=== PATIENT | male | born 1950 ===

== ENCOUNTER 2019-07-17 16:49 | Inpatient (IN) | payer MEDICARE, OTHER ==
[~2019-07-17] VITALS: Ht 172.7 cm; Wt 57.8 kg
[2019-07-17] MEDS ORDERED: CHOL50004 PO (17:01)
[2019-07-17] MEDS ORDERED: ATOR20TA86 PO (17:01)
[2019-07-17] MEDS ORDERED: OLAN10TA3 PO (17:01)
[2019-07-17] MEDS ORDERED: PARO20TA24 PO (17:01)
[2019-07-17] MEDS ORDERED: MIRT15 PO (17:01)
[2019-07-17] MEDS ORDERED: LEVO75 PO (17:01)
[2019-07-17] MEDS ORDERED: CALC-1038 PO (17:01)
[2019-07-17] MEDS ORDERED: ASCO500 PO (17:01)
[2019-07-17] MEDS ORDERED: DOCU-275 PO (17:01)
[2019-07-17] MEDS ORDERED: FERR134T2 PO (17:01)
[2019-07-17 17:17] LABS: BASOPHILS % (AUTO) 0.2 % (0.0-2.0); EOSINOPHILS % (AUTO) 0 % (1.0-6.0); HEMATOCRIT 21.4 % (41-53); HEMOGLOBIN 7.2 g/dL (13.5-17.5); LYMPHOCYTES # (AUTO) 2.1 K/uL (1.0-4.8); LYMPHOCYTES % (AUTO) 14.6 % (22.0-44.0); MEAN CORPUSCULAR HEMOGLOBIN 30.2 pg (26.0-34.0); MEAN CORPUSCULAR HGB CONC 33.6 G/dL (31.0-37.0); MEAN CORPUSCULAR VOLUME 90 fL (80-100); MONOCYTES # (AUTO) 0.9 K/uL (0.1-1.0); MONOCYTES % (AUTO) 6.7 % (2.0-9.0); NEUTROPHILS # (AUTO) 11.2 K/uL (1.8-7.7); NEUTROPHILS % (AUTO) 78.5 % (40.0-70.0); PLATELET COUNT (AUTO) 354 K/uL (150-450); RED BLOOD CELL COUNT(AUTO) 2.38 MIL/uL (4.50-5.90); RED CELL DISTRIBUTION WIDTH 13.7 % (11.5-14.5)
[2019-07-17 17:40] LABS: CALCIUM, TOTAL 9.2 mg/dL (8.8-10.5); CREATININE 1.8 mg/dL (0.60-1.30)
[2019-07-17] MEDS ORDERED: BARIUM SULFATE 0.1% SUSPENSION 450 ML BOTTLE PO ONE (17:45)
[2019-07-17] MEDS ORDERED: SODIUM CHLORIDE 0.9% 0 ML ONE (17:45)
[2019-07-17] MEDS ORDERED: IOVERSOL 320 MG/ML 100 ML VIAL ONE (17:45)
[2019-07-17 17:46] LABS: BILIRUBIN,TOTAL 0.2 mg/dL (0.1-1.0); TOTAL PROTEIN, SERUM 6.4 g/dL (6.4-8.2)
[2019-07-17] MEDS ORDERED: CALC-916 PO (17:46)
[2019-07-17] MEDS ORDERED: FERR-89 PO (17:46)
[2019-07-17 18:02] LABS: INR 1.1 (0.9-1.1); PROTHROMBIN TIME 10.8 SEC (9.4-11.6)
[2019-07-17 18:07] LABS: FREE T4 (FREE THYROXINE) 1.12 ng/dL (0.76-1.46); THYROID STIMULATING HORMONE 10.85 uIU/mL (0.36-3.74)
[2019-07-17] MEDS ORDERED: SODIUM CHLORIDE 0.9% 1,000 ML IV ONE (18:30)
[2019-07-17] MEDS ORDERED: CIPROFLOXACIN 400 MG/D5% WATER 200 ML IV ONE (19:15)
[2019-07-17] MEDS ORDERED: MetroNIDAZOLE 250 MG TABLET PO ONE (19:15)
[2019-07-17] MEDS ORDERED: SODIUM CHLORIDE 0.9% 1,500 ML IV ONE (19:53)
[2019-07-17] MEDS ORDERED: ONDANSETRON HCL 4 MG/2 ML VIAL IVP PRN (20:15)
[2019-07-17] MEDS ORDERED: 0.9% SODIUM CHLORIDE 10 ML SYRINGE IVP PRN (20:15)
[2019-07-17] MEDS ORDERED: ACETAMINOPHEN 325 MG TABLET PO PRN (20:15)
[2019-07-17] MEDS: LORazepam 2 MG/ML VIAL IVP PRN (23:59)
[2019-07-18] MEDS ORDERED: MIRTAZAPINE 15 MG TABLET PO SCH
[2019-07-18] MEDS ORDERED: ZOLPIDEM TARTRATE 5 MG TABLET PO PRN
[2019-07-18] MEDS ORDERED: ONDANSETRON HCL 4 MG/2 ML VIAL IVP PRN
[2019-07-18] MEDS ORDERED: SODIUM PHOS/SODIUM BIPHOS 133 ML ENEMA PR ONE
[2019-07-18] MEDS ORDERED: SODIUM CHLORIDE 0.9% 1,000 ML IV ONE
[2019-07-18] MEDS ORDERED: 0.9% SODIUM CHLORIDE 10 ML SYRINGE IVP PRN
[2019-07-18] MEDS: OLANZapine 10 MG TABLET PO SCH ×2 (01:46→21:17)
[2019-07-18 02:19] LABS: BASOPHILS % (AUTO) 0.1 % (0.0-2.0); EOSINOPHILS % (AUTO) 0 % (1.0-6.0); LYMPHOCYTES # (AUTO) 1.4 K/uL (1.0-4.8); LYMPHOCYTES % (AUTO) 12.1 % (22.0-44.0); MEAN CORPUSCULAR HEMOGLOBIN 30.5 pg (26.0-34.0); MEAN CORPUSCULAR HGB CONC 33.5 G/dL (31.0-37.0); MEAN CORPUSCULAR VOLUME 91 fL (80-100); MONOCYTES # (AUTO) 0.6 K/uL (0.1-1.0); MONOCYTES % (AUTO) 5.3 % (2.0-9.0); NEUTROPHILS # (AUTO) 9.7 K/uL (1.8-7.7); NEUTROPHILS % (AUTO) 82.5 % (40.0-70.0); PLATELET COUNT (AUTO) 297 K/uL (150-450); RED BLOOD CELL COUNT(AUTO) 1.84 MIL/uL (4.50-5.90); RED CELL DISTRIBUTION WIDTH 13.7 % (11.5-14.5)
[2019-07-18 02:23] LABS: HEMATOCRIT 16.7 % (41-53)
[2019-07-18 02:25] LABS: HEMOGLOBIN 5.6 g/dL (13.5-17.5)
[2019-07-18 02:27] LABS: CALCIUM, TOTAL 7.6 mg/dL (8.8-10.5); CREATININE 1.59 mg/dL (0.60-1.30); POTASSIUM 4.2 mmol/L (3.5-5.1)
[2019-07-18 02:37] LABS: TROPONIN I 0.02 ng/mL (0.00-0.05)
[2019-07-18 02:52] LABS: ABG A-A DIFF O2 49.9 mmHg (10-20.0); ABG BASE EXCESS -8.4 mmol/L (-2.0-3.0); ABG CARBOXYHEMOGLOBIN 1.5 % (0.0-1.5); ABG METHEMOGLOBIN 0.3 % (0.0-1.5); ABG OXYGEN CONTENT 7.9 mL/dL (15.0-23.0); ABG OXYGEN SATURATION 99.1 % (95.0-98.0); ABG OXYHEMOGLOBIN 97.3 % (94.0-100.0); ABG PCO2 21 mmHg (35-45); ABG PH 7.473 (7.35-7.450); PO2, ARTERIAL BG 153.3 mmHg (75.0-83.0); SOURCE, BLOOD GAS ARTERIAL; TEMPERATURE, FAHRENHEIT, BG 98.6 FAHREN (96.0-98.6)
[2019-07-18 02:53] LABS: ABG TOTAL HEMOGLOBIN 5.5 G/dL (12.0-18.0); SITE, BLOOD GAS RT RADIAL
[2019-07-18 02:54] LABS: O2 DEVICE,BLOOD GAS CANNULA (ROOM AIR)
[2019-07-18 03:15] VITALS: BP 110/39
[2019-07-18 03:30] VITALS: BP 109/73
[2019-07-18 04:00] VITALS: BP 117/59
[2019-07-18] MEDS: MetroNIDAZOLE 250 MG/NACL 50 ML IV SCH ×3 (04:25→19:37)
[2019-07-18 04:30] VITALS: BP 125/67
[2019-07-18] MEDS ORDERED: PANTOPRAZOLE SODIUM 40 MG/VIAL IVP ONE (04:30)
[2019-07-18 05:00] VITALS: BP 130/84
[2019-07-18] MEDS: PANTOPRAZOLE SODIUM 80 MG in SODIUM CHLORIDE 0.9% 100 ML IV SCH ×2 (05:18→14:47)
[2019-07-18 05:29] LABS: APPEARANCE,URINE CLEAR (CLEAR); BILIRUBIN,URINE NEGATIVE (NEGATIVE); GLUCOSE, URINE (UA) NEGATIVE (NEGATIVE); KETONES,URINE NEGATIVE (NEGATIVE); LEUKOCYTE ESTERASE ,URINE NEGATIVE (NEGATIVE); NITRATE,URINE NEGATIVE (NEGATIVE); OCCULT BLOOD,URINE NEGATIVE (NEGATIVE); PH,URINE 5.5 (5.0-8.0); PROTEIN,URINE NEGATIVE (NEGATIVE); UROBILINOGEN,URINE 0.2 mg/dL (<=1.0)
[2019-07-18 05:30] VITALS: BP 132/59
[2019-07-18] MEDS: LEVOTHYROXINE SODIUM 75 MCG TABLET PO SCH (07:14)
[2019-07-18] MEDS: FERROUS SULFATE 325 MG EC TABLET PO SCH ×2 (08:00→17:10)
[2019-07-18] MEDS: HEPARIN SODIUM,PORCINE 5,000 UNITS/ML VIAL SQ SCH ×3 (08:00→08:14)
[2019-07-18 08:07] LABS: BASOPHILS % (AUTO) 0.1 % (0.0-2.0); EOSINOPHILS % (AUTO) 0.1 % (1.0-6.0); HEMATOCRIT 23.8 % (41-53); HEMOGLOBIN 8.3 g/dL (13.5-17.5); LYMPHOCYTES # (AUTO) 0.6 K/uL (1.0-4.8); LYMPHOCYTES % (AUTO) 5.4 % (22.0-44.0); MEAN CORPUSCULAR HEMOGLOBIN 31.3 pg (26.0-34.0); MEAN CORPUSCULAR VOLUME 90 fL (80-100); MONOCYTES # (AUTO) 0.3 K/uL (0.1-1.0); MONOCYTES % (AUTO) 2.4 % (2.0-9.0); NEUTROPHILS # (AUTO) 9.6 K/uL (1.8-7.7); PLATELET COUNT (AUTO) 244 K/uL (150-450); RED BLOOD CELL COUNT(AUTO) 2.66 MIL/uL (4.50-5.90); RED CELL DISTRIBUTION WIDTH 13.8 % (11.5-14.5)
[2019-07-18 08:27] LABS: ALBUMIN 2.5 g/dL (3.4-5.0); BILIRUBIN,TOTAL 1.2 mg/dL (0.1-1.0); CREATININE 1.28 mg/dL (0.60-1.30); MAGNESIUM 1.6 mg/dL (1.80-2.40); POTASSIUM 3.8 mmol/L (3.5-5.1); TOTAL PROTEIN, SERUM 5.2 g/dL (6.4-8.2)
[2019-07-18] MEDS ORDERED: PANTOPRAZOLE SODIUM 40 MG DR TABLET PO SCH (09:00)
[2019-07-18] MEDS ORDERED: ASCORBIC ACID 500 MG TABLET PO SCH (09:00)
[2019-07-18] MEDS: CHOLECALCIFEROL (VIT D3) 5,000 UNITS CAPSULE PO SCH (09:00)
[2019-07-18] MEDS: ATORVASTATIN CALCIUM 20 MG TABLET PO SCH (09:00)
[2019-07-18] MEDS: DOCUSATE SODIUM 100 MG CAPSULE PO SCH ×3 (09:00→20:26)
[2019-07-18] MEDS: CIPROFLOXACIN 400 MG/D5% WATER 200 ML IV SCH ×2 (09:16→20:48)
[2019-07-18] MEDS ORDERED: SODIUM CHLORIDE 0.9% 500 ML IV ONE (11:30)
[2019-07-18] MEDS: LORazepam 2 MG/ML VIAL IVP PRN ×2 (11:44→18:08)
[2019-07-18] MEDS ORDERED: ONDANSETRON HCL 4 MG TABLET ONE (17:22)
[2019-07-18 20:58] LABS: HEMATOCRIT 21.1 % (41-53); HEMOGLOBIN 7.2 g/dL (13.5-17.5); MEAN CORPUSCULAR HGB CONC 34.4 G/dL (31.0-37.0); MEAN CORPUSCULAR VOLUME 90 fL (80-100); PLATELET COUNT (AUTO) 265 K/uL (150-450); RED BLOOD CELL COUNT(AUTO) 2.34 MIL/uL (4.50-5.90); RED CELL DISTRIBUTION WIDTH 14.2 % (11.5-14.5)
[2019-07-18 22:11] LABS: BAND NEUTROPHILS % (MANUAL) 25 % (0-5); LYMPHOCYTES % (MANUAL) 7 % (22-44); MONOCYTES % (MANUAL) 6 % (2-9); SEGMENTED NEUTROPHILS % 62 % (40-70)
[2019-07-19] MEDS: LORazepam 2 MG/ML VIAL IVP PRN ×4 (00:16→22:23)
[2019-07-19] MEDS: PANTOPRAZOLE SODIUM 80 MG in SODIUM CHLORIDE 0.9% 100 ML IV SCH ×3 (00:33→21:09)
[2019-07-19] MEDS: MetroNIDAZOLE 250 MG/NACL 50 ML IV SCH ×3 (03:16→20:38)
[2019-07-19] MEDS: FERROUS SULFATE 325 MG EC TABLET PO SCH ×2 (08:18→17:54)
[2019-07-19] MEDS: LEVOTHYROXINE SODIUM 75 MCG TABLET PO SCH (08:18)
[2019-07-19 08:38] LABS: EOSINOPHILS % (AUTO) 0 % (1.0-6.0); HEMATOCRIT 22.2 % (41-53); HEMOGLOBIN 7.6 g/dL (13.5-17.5); LYMPHOCYTES # (AUTO) 0.7 K/uL (1.0-4.8); LYMPHOCYTES % (AUTO) 6.5 % (22.0-44.0); MEAN CORPUSCULAR HEMOGLOBIN 30.6 pg (26.0-34.0); MEAN CORPUSCULAR HGB CONC 34.3 G/dL (31.0-37.0); MEAN CORPUSCULAR VOLUME 89 fL (80-100); MONOCYTES # (AUTO) 0.6 K/uL (0.1-1.0); MONOCYTES % (AUTO) 5.2 % (2.0-9.0); NEUTROPHILS # (AUTO) 9.6 K/uL (1.8-7.7); PLATELET COUNT (AUTO) 279 K/uL (150-450); RED BLOOD CELL COUNT(AUTO) 2.49 MIL/uL (4.50-5.90); RED CELL DISTRIBUTION WIDTH 14.2 % (11.5-14.5)
[2019-07-19 08:40] LABS: NEUTROPHILS % (AUTO) 88.3 % (40.0-70.0)
[2019-07-19 08:47] LABS: CALCIUM, TOTAL 7.5 mg/dL (8.8-10.5); CREATININE 1.21 mg/dL (0.60-1.30); POTASSIUM 3.9 mmol/L (3.5-5.1)
[2019-07-19 08:52] LABS: INR 1.2 (0.9-1.1)
[2019-07-19 08:57] LABS: ALBUMIN 2.3 g/dL (3.4-5.0); BILIRUBIN,TOTAL 0.5 mg/dL (0.1-1.0); TOTAL PROTEIN, SERUM 5.3 g/dL (6.4-8.2)
[2019-07-19] MEDS: CHOLECALCIFEROL (VIT D3) 5,000 UNITS CAPSULE PO SCH (09:09)
[2019-07-19] MEDS: ATORVASTATIN CALCIUM 20 MG TABLET PO SCH (09:09)
[2019-07-19] MEDS: DOCUSATE SODIUM 100 MG CAPSULE PO SCH ×2 (09:09→21:00)
[2019-07-19] MEDS: CIPROFLOXACIN 400 MG/D5% WATER 200 ML IV SCH ×2 (09:18→21:59)
[2019-07-19] MEDS ORDERED: PROPOFOL 1% 20 ML VIAL IVP ONE (12:00)
[2019-07-19] MEDS ORDERED: MIDAZOLAM HCL 2 MG/2 ML VIAL ONE (14:09)
[2019-07-19] MEDS ORDERED: FentaNYL CITRATE-PF 100 MCG/2 ML VIAL ONE (14:09)
[2019-07-19 19:00] VITALS: BP 117/62
[2019-07-19 19:30] VITALS: BP 134/52
[2019-07-19] MEDS: OLANZapine 10 MG TABLET PO SCH (21:00)
[2019-07-19 22:18] VITALS: BP 115/61
[2019-07-19] MEDS ORDERED: LORazepam 2 MG/ML VIAL ONE (22:22)
[2019-07-20] MEDS: MetroNIDAZOLE 250 MG/NACL 50 ML IV SCH ×3 (03:58→20:40)
[2019-07-20 04:00] VITALS: BP 100/60
[2019-07-20] MEDS: LEVOTHYROXINE SODIUM 75 MCG TABLET PO SCH (06:30)
[2019-07-20] MEDS: PANTOPRAZOLE SODIUM 80 MG in SODIUM CHLORIDE 0.9% 100 ML IV SCH ×2 (07:02→17:36)
[2019-07-20] MEDS: LORazepam 2 MG/ML VIAL IVP PRN (07:47)
[2019-07-20 07:48] VITALS: BP 118/56
[2019-07-20 09:41] LABS: BASOPHILS % (AUTO) 0.1 % (0.0-2.0); EOSINOPHILS % (AUTO) 0 % (1.0-6.0); HEMATOCRIT 21.6 % (41-53); HEMOGLOBIN 7.6 g/dL (13.5-17.5); LYMPHOCYTES # (AUTO) 0.7 K/uL (1.0-4.8); LYMPHOCYTES % (AUTO) 7.1 % (22.0-44.0); MEAN CORPUSCULAR HEMOGLOBIN 31.9 pg (26.0-34.0); MEAN CORPUSCULAR HGB CONC 35.4 G/dL (31.0-37.0); MEAN CORPUSCULAR VOLUME 90 fL (80-100); MONOCYTES # (AUTO) 0.7 K/uL (0.1-1.0); MONOCYTES % (AUTO) 6.4 % (2.0-9.0); PLATELET COUNT (AUTO) 351 K/uL (150-450); RED BLOOD CELL COUNT(AUTO) 2.39 MIL/uL (4.50-5.90); RED CELL DISTRIBUTION WIDTH 14.5 % (11.5-14.5)
[2019-07-20 09:58] LABS: ANION GAP 13 mmol/L (8-16); CALCIUM, TOTAL 7.8 mg/dL (8.8-10.5); CARBON DIOXIDE 20 mmol/L (22-29); CHLORIDE 108 mmol/L (98-107); CREATININE 1.16 mg/dL (0.60-1.30); GLUCOSE,RANDOM 94 mg/dL (70-110); POTASSIUM 3.8 mmol/L (3.5-5.1); SODIUM SERUM 141 mmol/L (136-145); UREA NITROGEN, BLOOD 29 mg/dL (7-18)
[2019-07-20 09:59] LABS: GLOMERULAR FILTR. RATE CALC > 60 mL/min (>60); NEUTROPHILS % (AUTO) 86.4 % (40.0-70.0)
[2019-07-20] MEDS: CIPROFLOXACIN 400 MG/D5% WATER 200 ML IV SCH ×2 (10:06→21:53)
[2019-07-20] MEDS: DOCUSATE SODIUM 100 MG CAPSULE PO SCH ×2 (10:19→21:53)
[2019-07-20] MEDS: FERROUS SULFATE 325 MG EC TABLET PO SCH ×2 (10:19→18:37)
[2019-07-20] MEDS: ATORVASTATIN CALCIUM 20 MG TABLET PO SCH (10:19)
[2019-07-20 12:00] VITALS: BP 105/55
[2019-07-20] MEDS: CHOLECALCIFEROL (VIT D3) 5,000 UNITS CAPSULE PO SCH (13:21)
[2019-07-20 16:04] VITALS: BP 98/75
[2019-07-20 20:18] VITALS: BP 98/64
[2019-07-20] MEDS: OLANZapine 10 MG TABLET PO SCH (21:53)
[2019-07-21] VITALS (11 sets, daily range): BP systolic 80–113; BP diastolic 44–74
[2019-07-21] MEDS: PANTOPRAZOLE SODIUM 80 MG in SODIUM CHLORIDE 0.9% 100 ML IV SCH ×3 (03:22→22:24)
[2019-07-21] MEDS: MetroNIDAZOLE 250 MG/NACL 50 ML IV SCH ×3 (03:23→20:47)
[2019-07-21] MEDS: LEVOTHYROXINE SODIUM 75 MCG TABLET PO SCH (05:46)
[2019-07-21 07:12] LABS: CALCIUM, TOTAL 7.5 mg/dL (8.8-10.5); CREATININE 1.24 mg/dL (0.60-1.30); POTASSIUM 3.4 mmol/L (3.5-5.1)
[2019-07-21 07:15] LABS: BASOPHILS % (AUTO) 0.1 % (0.0-2.0); EOSINOPHILS % (AUTO) 0.1 % (1.0-6.0); LYMPHOCYTES # (AUTO) 0.4 K/uL (1.0-4.8); LYMPHOCYTES % (AUTO) 5.9 % (22.0-44.0); MEAN CORPUSCULAR HEMOGLOBIN 30.7 pg (26.0-34.0); MEAN CORPUSCULAR HGB CONC 34.4 G/dL (31.0-37.0); MEAN CORPUSCULAR VOLUME 89 fL (80-100); MONOCYTES # (AUTO) 0.6 K/uL (0.1-1.0); MONOCYTES % (AUTO) 8.6 % (2.0-9.0); NEUTROPHILS # (AUTO) 6.1 K/uL (1.8-7.7); PLATELET COUNT (AUTO) 367 K/uL (150-450); RED BLOOD CELL COUNT(AUTO) 2.25 MIL/uL (4.50-5.90); RED CELL DISTRIBUTION WIDTH 15.6 % (11.5-14.5)
[2019-07-21 07:17] LABS: HEMATOCRIT 20.1 % (41-53); HEMOGLOBIN 6.9 g/dL (13.5-17.5); NEUTROPHILS % (AUTO) 85.3 % (40.0-70.0)
[2019-07-21] MEDS ORDERED: POTASSIUM CHLORIDE 10% 40 MEQ/30 ML LIQUID UDCUP PO ONE (09:30)
[2019-07-21] MEDS: FERROUS SULFATE 325 MG EC TABLET PO SCH ×2 (09:33→18:19)
[2019-07-21] MEDS: ATORVASTATIN CALCIUM 20 MG TABLET PO SCH (09:34)
[2019-07-21] MEDS: DOCUSATE SODIUM 100 MG CAPSULE PO SCH ×3 (09:34→21:58)
[2019-07-21] MEDS: CHOLECALCIFEROL (VIT D3) 5,000 UNITS CAPSULE PO SCH (09:34)
[2019-07-21] MEDS: CIPROFLOXACIN 400 MG/D5% WATER 200 ML IV SCH ×2 (09:34→21:57)
[2019-07-21] MEDS: ACETAMINOPHEN 325 MG TABLET PO PRN ×2 (18:19→20:46)
[2019-07-21] MEDS ORDERED: SODIUM CHLORIDE 0.9% 500 ML IV ONE (19:53)
[2019-07-21] MEDS: OLANZapine 10 MG TABLET PO SCH ×2 (21:00→21:57)
[2019-07-22 00:04] VITALS: BP 95/53
[2019-07-22] MEDS ORDERED: SODIUM CHLORIDE 0.9% 250 ML IV ONE (04:44)
[2019-07-22] MEDS: MetroNIDAZOLE 250 MG/NACL 50 ML IV SCH ×3 (04:56→20:22)
[2019-07-22 05:09] VITALS: BP 105/55
[2019-07-22] MEDS: LEVOTHYROXINE SODIUM 75 MCG TABLET PO SCH (06:13)
[2019-07-22 07:34] VITALS: BP 100/55
[2019-07-22 08:03] LABS: PHOSPHORUS 2.1 mg/dL (2.5-4.9); POTASSIUM 3.6 mmol/L (3.5-5.1)
[2019-07-22 08:20] LABS: BASOPHILS % (AUTO) 0.1 % (0.0-2.0); EOSINOPHILS % (AUTO) 0.4 % (1.0-6.0); HEMATOCRIT 22.5 % (41-53); HEMOGLOBIN 7.8 g/dL (13.5-17.5); LYMPHOCYTES # (AUTO) 0.6 K/uL (1.0-4.8); LYMPHOCYTES % (AUTO) 7.9 % (22.0-44.0); MEAN CORPUSCULAR HEMOGLOBIN 30.8 pg (26.0-34.0); MEAN CORPUSCULAR HGB CONC 34.6 G/dL (31.0-37.0); MEAN CORPUSCULAR VOLUME 89 fL (80-100); MONOCYTES # (AUTO) 0.6 K/uL (0.1-1.0); MONOCYTES % (AUTO) 7.5 % (2.0-9.0); NEUTROPHILS # (AUTO) 6.3 K/uL (1.8-7.7); NEUTROPHILS % (AUTO) 84.1 % (40.0-70.0); PLATELET COUNT (AUTO) 350 K/uL (150-450); RED BLOOD CELL COUNT(AUTO) 2.52 MIL/uL (4.50-5.90); RED CELL DISTRIBUTION WIDTH 14.6 % (11.5-14.5)
[2019-07-22 08:28] LABS: ANION GAP 9 mmol/L (8-16); CALCIUM, TOTAL 7.5 mg/dL (8.8-10.5); CARBON DIOXIDE 23 mmol/L (22-29); CHLORIDE 109 mmol/L (98-107); GLUCOSE,RANDOM 105 mg/dL (70-110); SODIUM SERUM 141 mmol/L (136-145); UREA NITROGEN, BLOOD 21 mg/dL (7-18)
[2019-07-22 08:30] LABS: GLOMERULAR FILTR. RATE CALC > 60 mL/min (>60)
[2019-07-22] MEDS: DOCUSATE SODIUM 100 MG CAPSULE PO SCH ×2 (08:45→20:23)
[2019-07-22] MEDS: CHOLECALCIFEROL (VIT D3) 5,000 UNITS CAPSULE PO SCH (08:45)
[2019-07-22] MEDS: ATORVASTATIN CALCIUM 20 MG TABLET PO SCH (08:45)
[2019-07-22] MEDS: FERROUS SULFATE 325 MG EC TABLET PO SCH ×2 (08:45→18:12)
[2019-07-22] MEDS: CIPROFLOXACIN 400 MG/D5% WATER 200 ML IV SCH ×2 (09:03→20:23)
[2019-07-22] MEDS: PANTOPRAZOLE SODIUM 80 MG in SODIUM CHLORIDE 0.9% 100 ML IV SCH ×2 (09:10→20:22)
[2019-07-22 11:17] VITALS: BP 101/54
[2019-07-22 15:10] VITALS: BP 118/58
[2019-07-22 20:24] VITALS: BP 122/66
[2019-07-22] MEDS: OLANZapine 10 MG RAPDIS TABLET PO SCH (20:52)
[2019-07-23] VITALS (8 sets, daily range): BP systolic 90–117; BP diastolic 43–64
[2019-07-23] MEDS: MetroNIDAZOLE 250 MG/NACL 50 ML IV SCH ×3 (03:37→20:25)
[2019-07-23] MEDS: PANTOPRAZOLE SODIUM 80 MG in SODIUM CHLORIDE 0.9% 100 ML IV SCH ×3 (04:53→23:49)
[2019-07-23] MEDS: LEVOTHYROXINE SODIUM 75 MCG TABLET PO SCH (06:20)
[2019-07-23] MEDS: CIPROFLOXACIN 400 MG/D5% WATER 200 ML IV SCH ×2 (08:41→21:46)
[2019-07-23] MEDS: CHOLECALCIFEROL (VIT D3) 5,000 UNITS CAPSULE PO SCH (08:41)
[2019-07-23] MEDS: DOCUSATE SODIUM 100 MG CAPSULE PO SCH ×2 (08:42→21:20)
[2019-07-23] MEDS: ATORVASTATIN CALCIUM 20 MG TABLET PO SCH (08:42)
[2019-07-23] MEDS: FERROUS SULFATE 325 MG EC TABLET PO SCH ×2 (08:42→18:21)
[2019-07-23] MEDS ORDERED: SODIUM CHLORIDE 0.9% 250 ML IV ONE (08:45)
[2019-07-23 14:44] LABS: BASOPHILS % (AUTO) 0.2 % (0.0-2.0); EOSINOPHILS % (AUTO) 1.2 % (1.0-6.0); HEMATOCRIT 22.8 % (41-53); HEMOGLOBIN 7.5 g/dL (13.5-17.5); LYMPHOCYTES # (AUTO) 0.7 K/uL (1.0-4.8); LYMPHOCYTES % (AUTO) 9.3 % (22.0-44.0); MEAN CORPUSCULAR HEMOGLOBIN 29.2 pg (26.0-34.0); MEAN CORPUSCULAR HGB CONC 33.1 G/dL (31.0-37.0); MEAN CORPUSCULAR VOLUME 89 fL (80-100); MONOCYTES # (AUTO) 0.4 K/uL (0.1-1.0); MONOCYTES % (AUTO) 5.2 % (2.0-9.0); NEUTROPHILS # (AUTO) 6.3 K/uL (1.8-7.7); NEUTROPHILS % (AUTO) 84.1 % (40.0-70.0); PLATELET COUNT (AUTO) 374 K/uL (150-450); RED BLOOD CELL COUNT(AUTO) 2.58 MIL/uL (4.50-5.90); RED CELL DISTRIBUTION WIDTH 15.2 % (11.5-14.5)
[2019-07-23] MEDS: OLANZapine 10 MG RAPDIS TABLET PO SCH (21:20)
[2019-07-24 00:20] VITALS: BP 103/46
[2019-07-24] MEDS: MetroNIDAZOLE 250 MG/NACL 50 ML IV SCH ×2 (04:07→12:08)
[2019-07-24 05:05] VITALS: BP 94/47
[2019-07-24] MEDS: LEVOTHYROXINE SODIUM 75 MCG TABLET PO SCH (06:21)
[2019-07-24 07:23] VITALS: BP 117/52
[2019-07-24] MEDS: CIPROFLOXACIN 400 MG/D5% WATER 200 ML IV SCH (08:34)
[2019-07-24] MEDS: ATORVASTATIN CALCIUM 20 MG TABLET PO SCH (08:35)
[2019-07-24] MEDS: DOCUSATE SODIUM 100 MG CAPSULE PO SCH (08:35)
[2019-07-24] MEDS: FERROUS SULFATE 325 MG EC TABLET PO SCH (08:36)
[2019-07-24] MEDS: CHOLECALCIFEROL (VIT D3) 5,000 UNITS CAPSULE PO SCH (08:36)
[2019-07-24 11:28] VITALS: BP 112/72
[2019-07-24] MEDS: PANTOPRAZOLE SODIUM 80 MG in SODIUM CHLORIDE 0.9% 100 ML IV SCH (11:28)
[2019-07-24 16:12] VITALS: BP 112/48
[2019-07-24] MEDS ORDERED: [UNRECOGNIZED DRUG - CODE] IV (17:42)
[2019-07-24] MEDS ORDERED: [UNRECOGNIZED DRUG - CODE] IV (17:44)
== END 2019-07-24 17:50 | DRG 871 ==
LOC: EMS 17:05 → 5N 17:30 → ICU 07-18 06:39 → UNDOADMIN 07-18 06:39 → ICU 07-18 06:40 → 5N 07-19 18:05 → UNDOADMIN 07-19 18:05 → 5N 07-19 18:30 → UNDODISIN 07-24 17:50
PROVIDERS: ADMIT Internal Medicine; ATTEND Internal Medicine
PROC: 30233N1 Transfusion of Nonautologous Red Blood Cells into Peripheral Vein, Percutaneous Approach (ICD-10-PCS; principal; 2019-07-18)
PROC: 0DJ08ZZ Inspection of Upper Intestinal Tract, Via Natural or Artificial Opening Endoscopic (ICD-10-PCS; 2019-07-19)
DX: A41.9 Sepsis, unspecified organism (principal); E43 Unspecified severe protein-calorie malnutrition; K29.71 Gastritis, unspecified, with bleeding; N17.9 Acute kidney failure, unspecified; K63.3 Ulcer of intestine; Z68.1 Body mass index [BMI] 19.9 or less, adult; K52.9 Noninfective gastroenteritis and colitis, unspecified; K56.41 Fecal impaction; F32.9 Major depressive disorder, single episode, unspecified; I10 Essential (primary) hypertension; E03.9 Hypothyroidism, unspecified; F20.9 Schizophrenia, unspecified; R62.7 Adult failure to thrive; F03.90 Unspecified dementia, unspecified severity, without behavioral disturbance, psychotic disturbance, mood disturbance, and anxiety; K21.0 Gastro-esophageal reflux disease with esophagitis; D64.9 Anemia, unspecified; K44.9 Diaphragmatic hernia without obstruction or gangrene; Z86.73 Personal history of transient ischemic attack (TIA), and cerebral infarction without residual deficits
CPT/HCPCS: 36600; 70450; 74018; 74176; 82271; 82805; 83540; 83550; 83605; 83735; 84100; 84439; 84443; 86850; 86900; 86901; 86920; 87040; 92526; 92610; 93005; 96365; 99291; C9113; G0378; J0744; J1644; J2060; J2250; J2704; J3010; J3490; J7030; J7040; J7050; P9016; Q0162